=== PATIENT | female | born 1975 | race Caucasian/White ===

== ENCOUNTER 2017-07-02 17:54 | Emergency (ER) | payer MEDICARE, MEDICAID ==
[2017-07-02] MEDS: CLINDAMYCIN 150 MG CAP PO (21:00)
== END 2017-07-02 21:28 | disposition home or self-care (01) ==
LOC: M ED 17:54
DX: L03.115 Cellulitis of right lower limb (principal); H40.9 Unspecified glaucoma; K21.9 Gastro-esophageal reflux disease without esophagitis; F41.9 Anxiety disorder, unspecified; F33.9 Major depressive disorder, recurrent, unspecified; M51.9 Unspecified thoracic, thoracolumbar and lumbosacral intervertebral disc disorder; F17.210 Nicotine dependence, cigarettes, uncomplicated; Z79.899 Other long term (current) drug therapy; Z98.890 Other specified postprocedural states
CPT/HCPCS: 93971

== ENCOUNTER 2025-04-17 15:40 | Emergency (ER) | payer MEDICARE, MEDICAID ==
[~2025-04-17] VITALS: Ht 165.1 cm; Wt 140.0 kg
[~2025-04-17 15:40] MED LIST: ACET-716 PO; CLEO300C2 PO; CYCL-707 PO; GABA-284 PO; IBUP600T42 PO; ZOLO50TA PO
[2025-04-17 15:42] VITALS: TEMP 97.6
[2025-04-17 17:25] LABS: KETONE, URINE AUTO RFX NEGATIVE (NEGATIVE); MUCUS, URINE RFX SMALL (NEGATIVE); NITRITE, URINE AUTO RFX NEGATIVE (NEGATIVE); RBC, URINE AUTO RFX 6 /HPF (0-3); SQUAM EPITHELIAL CELL UR AURFX 32 /HPF (0-6)
[2025-04-17 17:29] LABS: LEUKOCYTE ESTERASE UR AUTO RFX 2+ (NEGATIVE); WBC, URINE AUTO RFX 43 /HPF (0-3)
[2025-04-17 17:32] LABS: BASO # 0.1 10^3/uL (0.0-0.2); BASO % 0.8 % (0.0-1.0); EOS # 0.2 10^3/uL (0.0-0.5); EOS % 4.0 % (0.0-3.0); LYMPH # 1.1 10^3/uL (1.5-5.0); LYMPH % 18.3 % (24.0-44.0); MONO # 0.5 10^3/uL (0.0-0.8); MONO % 7.7 % (2.0-8.0); NEUTROPHILS # 4.1 10^3/uL (1.5-8.5); NEUTROPHILS % 69.0 % (36.0-66.0); PLATELET COUNT, AUTOMATED 263 10^3/uL (150-450)
[2025-04-17 17:36] LABS: ALT/SGPT 70.0 U/L (7.0-40); AST/SGOT 107.0 U/L (<34); CALCIUM LEVEL 10.3 MG/DL (8.5-10.1); CARBON DIOXIDE LEVEL 28.0 MMOL/L (20-31); CHLORIDE LEVEL 101.0 MMOL/L (98-107); CREATININE FOR GFR 0.94 MG/DL (0.55-1.30); GLOMERULAR FILTRATION RATE 74.4 (>58); POTASSIUM SERUM 3.5 MMOL/L (3.5-5.1); SODIUM LEVEL 140.0 MMOL/L (136-145)
[2025-04-17] MEDS ORDERED: ISOVUE-370 76% 100 ML VIAL As Ordered ONE (20:30)
[2025-04-17 21:00] VITALS: BP 115/57; O2SAT 93
[2025-04-17] MEDS ORDERED: NITR100C3 PO (21:33)
[2025-04-17] MEDS ORDERED: ONDA-282 PO (21:36)
[2025-04-17] MEDS: ONDANSETRON 4MG ORAL DISINTEGRATING TAB PO ONE (21:47)
[2025-04-17] MEDS: NITROFURANTOIN 100 MG CAP PO ONE (22:09)
== END 2025-04-17 22:16 | disposition home or self-care (01) ==
LOC: M ED 15:40
DX: N30.00 Acute cystitis without hematuria (principal); K76.0 Fatty (change of) liver, not elsewhere classified; K21.9 Gastro-esophageal reflux disease without esophagitis; F32.A Depression, unspecified; F17.210 Nicotine dependence, cigarettes, uncomplicated; Z88.1 Allergy status to other antibiotic agents; Z88.5 Allergy status to narcotic agent; Z79.1 Long term (current) use of non-steroidal anti-inflammatories (NSAID); Z79.2 Long term (current) use of antibiotics; Z79.899 Other long term (current) drug therapy
CPT/HCPCS: 36415; 74177; 80048; 80076; 81001; 83605; 83690; 85025; 87040; 87070; 87076; 87088; 87186; 87205; 99284; Q9967